=== PATIENT | female | born 1950 | race Native Hawaiian/Other Pacific Islander ===

== ENCOUNTER 2017-02-03 11:06 | Outpatient (CLI) | payer BC, OTHER ==
[~2017-02-03 11:06] MED LIST: CLON0.5T36 PO; DIOVAN320 MG PO; FLECAINIDE100 MG PO; HYDR25TA60 PO; ZESTRIL40 MG PO
== END 2017-02-03 12:10 | disposition home or self-care (01) ==
LOC: RAD 11:06
DX: R07.81 Pleurodynia (principal)

== ENCOUNTER 2017-03-25 17:40 | Outpatient (CLI) | payer BC, OTHER | END 2017-03-25 19:00 | disposition home or self-care (01) | LOC: RESP 17:40 | DX: Z79.01 Long term (current) use of anticoagulants (principal); Z51.81 Encounter for therapeutic drug level monitoring; I10 Essential (primary) hypertension | CPT/HCPCS: 93306 ==

== ENCOUNTER 2017-06-28 19:08 | Emergency (ER) | payer BC, OTHER ==
[~2017-06-28] VITALS: Ht 160 cm; Wt 120.2 kg
[2017-06-28 20:25] LABS: PLATELET COUNT 157 K/uL (152-353)
[2017-06-28 21:09] VITALS: BP 163/64; TEMP 98.9
== END 2017-06-28 21:18 | disposition home or self-care (01) ==
LOC: ED 19:08
DX: J02.0 Streptococcal pharyngitis (principal)
CPT/HCPCS: 36415; 85027; 87804; 87880; 96373; 99283; J0696

== ENCOUNTER 2017-09-16 08:06 | Outpatient (CLI) | payer BC, OTHER | END 2017-09-16 21:55 | disposition home or self-care (01) | LOC: MAMMO 08:06 | DX: Z12.31 Encounter for screening mammogram for malignant neoplasm of breast (principal) ==

== ENCOUNTER 2018-06-04 11:26 | Outpatient (CLI) | payer BC, OTHER ==
[2018-06-04 13:36] LABS: POTASSIUM 4.1 mmol/L (3.6-5.2)
== END 2018-06-04 20:36 | disposition home or self-care (01) ==
LOC: LABW 11:26
PROVIDERS: Nurse Practitioner Family
DX: R10.11 Right upper quadrant pain (principal); R11.0 Nausea; I10 Essential (primary) hypertension
CPT/HCPCS: 36415; 80053; 82150; 83690

== ENCOUNTER 2018-06-11 09:21 | Outpatient (CLI) | payer BC, OTHER | END 2018-06-11 22:31 | disposition home or self-care (01) | LOC: US 09:21 | DX: R10.11 Right upper quadrant pain (principal) ==

== ENCOUNTER 2018-06-23 12:30 | Outpatient (CLI) | payer BC, OTHER | END 2018-06-23 23:43 | disposition home or self-care (01) | LOC: NM 12:30 | DX: R10.11 Right upper quadrant pain (principal); R11.0 Nausea; I10 Essential (primary) hypertension | CPT/HCPCS: A9537 ==

== ENCOUNTER 2018-09-17 07:54 | Outpatient (CLI) | payer BC, OTHER | END 2018-09-17 21:36 | disposition home or self-care (01) | LOC: RAD 07:54 | DX: M54.5 Low back pain (principal) ==

== ENCOUNTER 2018-11-17 17:39 | Outpatient (CLI) | payer BC, OTHER | END 2018-11-17 22:56 | disposition home or self-care (01) | LOC: RAD 17:39 | DX: C54.1 Malignant neoplasm of endometrium (principal) ==

== ENCOUNTER 2018-12-09 13:35 | Outpatient (CLI) | payer BC, OTHER | END 2018-12-09 19:24 | disposition home or self-care (01) | LOC: MAMMO 13:35 | DX: Z12.31 Encounter for screening mammogram for malignant neoplasm of breast (principal); C54.1 Malignant neoplasm of endometrium ==

== ENCOUNTER 2020-03-24 10:16 | Outpatient (CLI) | payer BC, OTHER | END 2020-03-24 22:24 | disposition home or self-care (01) | LOC: RAD 10:16 → LABW 10:16 → RAD 22:24 | DX: R05 Cough (principal) | CPT/HCPCS: 36415; 86615 ==

== ENCOUNTER 2020-12-13 14:48 | Outpatient (CLI) | payer BC, OTHER | END 2020-12-13 22:19 | disposition home or self-care (01) | LOC: MAMMO 14:48 | PROVIDERS: ATTEND Nurse Practitioner Family | DX: Z12.31 Encounter for screening mammogram for malignant neoplasm of breast (principal) ==

== ENCOUNTER 2021-10-28 19:43 | Inpatient (IN) | payer BC, OTHER ==
[~2021-10-28] VITALS: Ht 160 cm; Wt 117.5 kg
[2021-10-28 19:47] VITALS: BP 184/84; TEMP 98
[2021-10-28 20:16] VITALS: BP 184/81
[2021-10-28 20:18] LABS: PLATELET COUNT 186 K/uL (152-353)
[2021-10-28 20:39] VITALS: BP 168/94
[2021-10-28 20:58] LABS: PARTIAL THROMBOPLASTIN TIME 28.9 SECONDS (24.5-33.6)
[2021-10-28 21:01] VITALS: BP 165/108
[2021-10-28 23:40] VITALS: BP 141/93; TEMP 98.5; Ht 160 cm; Wt 117.5 kg
[2021-10-29 04:00] VITALS: BP 144/98; TEMP 97.5
[2021-10-29] MEDS ORDERED: APIX1TAB PO (06:13)
[2021-10-29] MEDS ORDERED: AMLODIPINE BESYLATE PO (06:15)
[2021-10-29] MEDS ORDERED: ETODOLAC400 MG PO (06:28)
[2021-10-29 08:00] VITALS: BP 141/80; TEMP 98.5
[2021-10-29] MEDS ORDERED: TIKOSYN250 MCG PO (10:01)
[2021-10-29 12:00] VITALS: BP 145/89; TEMP 97.9
[2021-10-29 16:00] VITALS: BP 130/89; TEMP 97.7
[2021-10-29 20:00] VITALS: BP 138/94; TEMP 97.5
[2021-10-30] VITALS: BP 124/80; TEMP 98.6
[2021-10-30 04:00] VITALS: BP 130/82; TEMP 97.5
[2021-10-30 05:18] LABS: PLATELET COUNT 128 K/uL (152-353)
[2021-10-30 05:19] LABS: POTASSIUM 3.8 mmol/L (3.6-5.2)
[2021-10-30 08:00] VITALS: BP 152/85; TEMP 97.8
[2021-10-30 09:18] VITALS: BP 154/96
[2021-10-30 09:32] VITALS: BP 102/71
[2021-10-30 12:00] VITALS: BP 145/85; TEMP 97.8
[2021-10-30] MEDS ORDERED: LEVAQUIN 500MG TAB PO (13:29)
== END 2021-10-30 14:15 | disposition home or self-care (01) | DRG 690 ==
LOC: ED 19:43 → MED/SURG 21:15
PROVIDERS: Hospitalist; ADMIT Internal Medicine; ATTEND Internal Medicine
DX: N39.0 Urinary tract infection, site not specified (principal); Z68.41 Body mass index [BMI] 40.0-44.9, adult; R31.9 Hematuria, unspecified; Z79.01 Long term (current) use of anticoagulants; I10 Essential (primary) hypertension; I48.0 Paroxysmal atrial fibrillation; I25.10 Atherosclerotic heart disease of native coronary artery without angina pectoris; E66.8 Other obesity; B96.20 Unspecified Escherichia coli [E. coli] as the cause of diseases classified elsewhere
CPT/HCPCS: 36415; 51702; 80048; 80053; 81000; 82550; 83880; 84439; 84443; 84484; 85027; 85610; 85730; 87077; 87086; 87088; 87186; 87635; 93005; 96360; 96365; 96375; 99284; J0696; J1335; J1650; J1885; J3490; U0003

== ENCOUNTER 2021-12-06 19:03 | Outpatient (CLI) | payer BC, OTHER ==
[~2021-12-06 19:03] MED LIST changes: +AMLODIPINE BESYLATE PO; +APIX1TAB PO; +ETODOLAC400 MG PO; +LEVAQUIN 500MG TAB PO; +TIKOSYN250 MCG PO
== END 2021-12-06 20:40 | disposition home or self-care (01) ==
LOC: RAD 19:03
PROVIDERS: ATTEND Nurse Practitioner Family
DX: R10.32 Left lower quadrant pain (principal); R31.9 Hematuria, unspecified; Z86.79 Personal history of other diseases of the circulatory system; Z87.440 Personal history of urinary (tract) infections; Z09 Encounter for follow-up examination after completed treatment for conditions other than malignant neoplasm

== ENCOUNTER 2022-01-27 02:53 | Observation (INO) | payer OTHER, BC ==
[~2022-01-27] VITALS: Ht 160 cm; Wt 115.7 kg
[2022-01-27] VITALS (19 sets, daily range): BP systolic 112–184; BP diastolic 59–122; TEMP 98–98.6; Ht 160 cm; Wt 115.7 kg
[2022-01-27 03:20] LABS: PLATELET COUNT 204 K/uL (152-353)
[2022-01-27 03:32] LABS: POTASSIUM 3.7 mmol/L (3.6-5.2)
[2022-01-27 03:46] LABS: PARTIAL THROMBOPLASTIN TIME 30.1 SECONDS (24.5-33.6)
== END 2022-01-27 15:36 | disposition short-term general hospital (02) ==
LOC: ED 02:53 → MED/SURG 10:43
PROVIDERS: Emergency Medicine; ADMIT Internal Medicine; ATTEND Internal Medicine
DX: R07.89 Other chest pain (principal); U07.1 COVID-19; I48.91 Unspecified atrial fibrillation; I10 Essential (primary) hypertension; E66.8 Other obesity; M15.8 Other polyosteoarthritis; I25.10 Atherosclerotic heart disease of native coronary artery without angina pectoris; R06.02 Shortness of breath
CPT/HCPCS: 36415; 80053; 82550; 83735; 83880; 84484; 85027; 85610; 85730; 87635; 93005; 96374; 96375; 96376; 99220; 99284; G0378; J1160; J2060; J2270; J2405; J3490; U0003

== ENCOUNTER 2023-02-24 12:16 | Outpatient (CLI) | payer BC, OTHER | END 2023-02-24 21:25 | disposition home or self-care (01) | LOC: MAMMO 12:16 | PROVIDERS: ATTEND Nurse Practitioner Family | DX: Z12.31 Encounter for screening mammogram for malignant neoplasm of breast (principal); N64.89 Other specified disorders of breast; N63.0 Unspecified lump in unspecified breast; Z80.3 Family history of malignant neoplasm of breast | CPT/HCPCS: G0279 ==